=== PATIENT | female | born 1970 | race Caucasian/White ===

== ENCOUNTER 2020-01-16 12:42 | Emergency (ER) | payer SELFPAY ==
--- NOTE | 2020-01-16 12:50 | TELE ---
HPI Do you have fever,cough or shortness of breath?: No - General Reason For Visit: COVID TEST History Source: Patient Exam Limitations: No Limitations Past History - Travel History Traveled outside of the country in the last 30 days: No Close contact w/someone who was outside of country & ill: No Review of Systems - Review of Systems Able to Perform ROS?: Yes Comments:: 01/16/20 12:55 CONSTITUTIONAL: Absent: fever, chills, diaphoresis, generalized weakness, malaise, loss of appetite HEENT: Absent: rhinorrhea, nasal congestion, throat pain, throat swelling, difficulty swallowing, mouth swelling, ear pain, eye pain, visual Changes CARDIOVASCULAR: Absent: chest pain, loss of consciousness, palpitations, irregular heart rate, peripheral edema RESPIRATORY: Absent: cough, shortness of breath, dyspnea with exertion, orthopnea, wheezing, stridor, hemoptysis GASTROINTESTINAL: Absent: abdominal pain, abdominal distension, nausea, vomiting, diarrhea, constipation, melena, hematochezia SKIN: Absent: rash, itching, pallor NEUROLOGIC: Absent: headache, focal weakness or paresthesias, dizziness, unsteady gait, seizure, mental status changes, bladder or bowel incontinence PSYCHIATRIC: Absent: anxiety, depression, suicidal or homicidal ideation, hallucinations. Limited Lithuanian proficient: No *Physical Exam - Physical Exam 01/16/20 12:55 GENERAL: Well developed, well nourished. Awake and alert. No acute distress. HEENT: Normocephalic, atraumatic. PERRLA, EOMI. NECK: Supple. Full ROM. PULMONARY: No evidence of respiratory distress. EXTREMITIES: No cyanosis. SKIN: Warm and dry. Normal capillary refill. No rashes. No jaundice. NEUROLOGICAL: Alert, awake, appropriate. PSYCHIATRIC: Cooperative. Good eye contact. Appropriate mood and affect. - Medical Decision Making 01/16/20 12:56 The patient is a 49-year-old female no past medical history, presents to [facility] urgent care for a COVID swab. She states that her seventh grader was in class with a child who tested positive for COVID. She is concerned she may have COVID herself so she would like a test. Denies any current symptoms and is in her usual state of health. A/P: Need for COVID swab On exam patient appears well, no acute distress. We will order COVID swab and refer to [place] emergency department. Isolation precautions given. Discharge Diagnosis at time of Disposition: Counseled about COVID-19 virus infection - Referrals - Patient Instructions
== END 2020-01-16 12:58 | disposition home or self-care (01) ==
LOC: JVIRT 12:42
DX: Z11.59 Encounter for screening for other viral diseases (principal)
CPT/HCPCS: Q3014-GT